=== PATIENT | male | born 1930 | race Caucasian/White ===

== ENCOUNTER 2017-07-25 11:09 | Inpatient (IN) | payer BC, MEDICARE ==
--- NOTE | 2017-07-25 12:38 | RAD ---
HISTORY: CP COMPARISON: 01/10/2013 FINDINGS: LUNGS: No active pulmonary disease. PLEURA: No significant pleural effusion identified, no pneumothorax apparent. CARDIOVASCULAR: Normal. OSSEOUS STRUCTURES: No significant abnormalities. VISUALIZED UPPER ABDOMEN: Normal. OTHER FINDINGS: None. IMPRESSION: No active disease.
--- NOTE | 2017-07-25 13:21 | ED PDOC ---
HPI: General Adult Time Seen by Provider: 07/25/17 12:02 Chief Complaint (Nursing): Flu-like Symptoms Chief Complaint (Provider): Flu-like Symptoms History Per: Patient History/Exam Limitations: no limitations Onset/Duration Of Symptoms: Persistent (x3 weeks) Current Symptoms Are (Timing): Still Present Additional Complaint(s): Micha Basurto is an 86 year old male that presents to the ED with a chief complaint of cough for three weeks, as well as generalized weakness, voice changing, and chest pain that she has been experiencing for the past five days. Patient reports that he has been taking over the counter medications without relief, and that he has been falling frequently because he feels weak. Patient denies any head injury, focal weakness, paresthesias, or headaches. Of Note: Patient's is in ER with similar symptoms. Past Medical History Reviewed: Historical Data, Nursing Documentation, Vital Signs Vital Signs: Last Vital Signs Temp 97.8 F 07/25/17 12:19 Pulse 86 07/25/17 12:19 Resp 20 07/25/17 12:19 BP 117/69 07/25/17 12:19 Pulse Ox 97 07/25/17 15:23 - Medical History PMH: Benign Prostatic Hyperplasia, HTN, Hypercholesterolemia - Surgical History Surgical History: Coronary Stent - Family History Family History: States: Unknown Family Hx - Home Medications Home Medications: Ambulatory Orders Medication Instructions Recorded Aspirin [Ecotrin] 81 mg PO HS 07/25/17 Cholecalciferol (Vitamin D3) 5,000 unit PO DAILY 07/25/17 [Vitamin D3] Dorzolamide 2%/Timolol 0.5% 1 drop EACHEYE Q12 07/25/17 [Cosopt 2%-0.5% Opht] Finasteride [Proscar] 5 mg PO HS 07/25/17 Glipizide [Glipizide ER] 2.5 mg PO QPM 07/25/17 Glipizide [Glipizide Xl] 10 mg PO DAILY 07/25/17 Metformin ER [Glucophage XR] 750 mg PO DAILY 07/25/17 Metoprolol Succinate [Toprol XL] 25 mg PO HS 07/25/17 [place]-3 Fatty Acids [[place]-3] 1 cap PO DAILY 07/25/17 Propylene Glycol/Peg 400 [Systane 1 drop EACHEYE Q6 PRN 07/25/17 Ultra 0.4-0.3% Eye Drp] Ramipril [Altace] 5 mg PO HS 07/25/17 Rosuvastatin Calcium [Crestor] 5 mg PO HS 07/25/17 Tamsulosin [Flomax] 0.4 mg PO HS 07/25/17 Travoprost [Travatan Z] 1 drop EACHEYE HS 07/25/17 Vitamin B Complex Vit C No.4 1 tab PO DAILY 07/25/17 [Super B Complex] - Allergies Allergies/Adverse Reactions: Allergies Allergy/AdvReac Type Severity Reaction Status Date / Time No Known Allergies Allergy Verified 07/25/17 12:27 Review of Systems ROS Statement: Except As Marked, All Systems Reviewed And Found Negative Constitutional: Positive for: Weakness (generalized) ENT: Positive for: Other ("voicie changing") Cardiovascular: Positive for: Chest Pain Respiratory: Positive for: Cough Physical Exam - Reviewed Nursing Documentation Reviewed: Yes Vital Signs Reviewed: Yes - Physical Exam Appears: Positive for: Non-toxic, No Acute Distress Head Exam: Positive for: ATRAUMATIC, NORMOCEPHALIC Skin: Positive for: Normal Color, Warm Eye Exam: Positive for: Normal appearance, EOMI, PERRL ENT: Positive for: Pharynx Is (clear), Other (Uvula midline. Dry mucous membranes. Voice is hoarse.). Negative for: Normal ENT Inspection, Pharyngeal Erythema, Tonsillar Exudate Neck: Positive for: Normal, Supple Cardiovascular/Chest: Positive for: Regular Rate, Rhythm. Negative for: Murmur Respiratory: Positive for: Normal Breath Sounds. Negative for: Wheezing Gastrointestinal/Abdominal: Positive for: Normal Exam, Soft. Negative for: Tenderness Back: Positive for: Normal Inspection. Negative for: L CVA Tenderness, R CVA Tenderness Extremity: Positive for: Normal ROM. Negative for: Deformity, Swelling Neurologic/Psych: Positive for: Alert, Oriented. Negative for: Motor/Sensory Deficits - Laboratory Results Result Diagrams: 07/25/17 14:15 07/25/17 12:45 - ECG O2 Sat by Pulse Oximetry: 97 (RA) Pulse Ox Interpretation: Normal - Physician Consult Information Time Consulting Physican Contacted: 15:03 Physician Contacted: Keyur Gómez Outcome Of Conversation: Recommends IgG antiplatelet Ab (direct and indirect), transfuse if evidence of bleeding. Medical Decision Making Medical Decision Making: Impression: Influenza vs. Generalized Weakness vs. Pneumonia vs. Bronchitis vs. Viral Syndrome Plan: * CT Head w/o contrast * EKG * CMP * CBC * PTT * PT * Troponin I * Urine Dip * Urinalysis * Blood Culture * Glucose, Blood, POC * Flu Swab * Rapid Strep * Reevaluation Accession No. : [id number] Patient Name / ID : AGUSTINA MOCK / [id number] Exam Date : 07/25/2017 12:22:37 ( Approved ) Study Comment : Sex / Age : M / 86Y Creator : Rashawn Roy MD Dictator : Rashawn Roy MD Regional [employer] : Fur Floor Worker : Rashawn Roy MD Approver2 : Report Date : 07/25/2017 12:36:44 My Comment : HISTORY: CP COMPARISON: 01/10/2013 FINDINGS: LUNGS: No active pulmonary disease. PLEURA: No significant pleural effusion identified, no pneumothorax apparent. CARDIOVASCULAR: Normal. OSSEOUS STRUCTURES: No significant abnormalities. VISUALIZED UPPER ABDOMEN: Normal. OTHER FINDINGS: None. IMPRESSION: No active disease. Accession No. : [id number] Patient Name / ID : AGUSTINA MOCK / [id number] Exam Date : 07/25/2017 14:50:50 ( Approved ) Study Comment : Sex / Age : M / 86Y Creator : Kyler Muñoz MD Dictator : Kyler Muñoz MD Regional [employer] : Fur Floor Worker : Kyler Muñoz MD Approver2 : Report Date : 07/25/2017 15:34:07 My Comment : PROCEDURE: CT HEAD WITHOUT CONTRAST. HISTORY: Vertigo COMPARISON: Unenhanced head CT 08/13/2009. Brain MRI without contrast 05/23/2011. TECHNIQUE: Axial computed tomography images were obtained through the head/brain without intravenous contrast. Radiation dose: Total exam DLP = 850.76 mGy-cm. This CT exam was performed using one or more of the following dose reduction techniques: Automated exposure control, adjustment of the mA and/or kV according to patient size, and/or use of iterative reconstruction technique. FINDINGS: HEMORRHAGE: No intracranial hemorrhage. BRAIN: Good corticomedullary differentiation is seen. Diffuse expansion of the ventriculosulcal and cisternal spaces is appreciated with white matter lucency compatible with diffuse cerebral atrophy and chronic microangiopathy. No suspicious extra-axial fluid collection is identified and the midline brain anatomy appears grossly nonfocal as imaged. There is no mass effect throughout. VENTRICLES: Unremarkable. No hydrocephalus. CALVARIUM: Unremarkable. PARANASAL SINUSES: Extensive right mastoid sinus disease appreciated, acute superimposed on chronic. MASTOID AIR CELLS: Unremarkable as visualized. No inflammatory changes. OTHER FINDINGS: None. IMPRESSION: Reiterated age related neuro degenerative change without definite acute CT findings intracranially. Follow-up CT or MRI are available as clinically warranted. Scribe Attestation: Documented by Mikala Daniel, acting as a scribe for Lo Kelly MD. Provider Scribe Attestation: All medical record entries made by the Scribe were at my direction and personally dictated by me. I have reviewed the chart and agree that the record accurately reflects my personal performance of the history, physical exam, medical decision making, and the department course for this patient. I have also personally directed, reviewed, and agree with the discharge instructions and disposition. Disposition - Clinical Impression Clinical Impression: Chest pain, Thrombocytopenia - Patient ED Disposition Is Patient to be Admitted: Yes - Disposition Disposition Time: 15:22 Condition: STABLE - Pt Status Changed To: Hospital Disposition Of: Inpatient - Admit Certification Admit to Inpatient:: After my assessment, the patient will require hospitalization for at least two midnights. This is because of the severity of symptoms shown, intensity of services needed, and/or the medical risk in this patient being treated as an outpatient. - POA Present On Arrival: None
[2017-07-25 13:38] LABS: BASO % 0.6 % (0.0-2.0); EOS % 0.1 % (0.0-4.0); HEMOGLOBIN 11.8 g/dL (12.0-18.0); LYMPH # 2.9 K/uL (1.0-4.3); LYMPH % 46.6 % (20.0-40.0); MEAN CELL VOLUME 94.8 fl (80.0-94.0); MEAN CORPUSCULAR HEMOGLOBIN 31.6 pg (27.0-31.0); MEAN CORPUSCULAR HGB CONC 33.3 g/dL (33.0-37.0); MEAN PLATELET VOLUME 9.2 fl (7.2-11.7); MONO # 0.4 K/uL (0.0-0.8); MONO % 6.7 % (0.0-10.0); NEUT # 2.8 K/uL (1.8-7.0); NRBC % 4.2 % (0.0-0.0); RBC 3.74 Mil/uL (4.40-5.90); RED CELL DISTRIBUTION WIDTH 16.4 % (11.5-14.5); WHITE BLOOD COUNT 6.2 K/uL (4.8-10.8)
[2017-07-25] MEDS ORDERED: Dextrose 50% SYRINGE Inj (50 ml) ONE (13:45)
[2017-07-25 13:50] LABS: ALBUMIN 3.6 g/dL (3.5-5.0); ALT/SGPT 81 U/L (21-72); AST/SGOT 60 U/L (17-59); BLOOD UREA NITROGEN 25 mg/dl (9-20); CALCIUM 9.2 mg/dL (8.4-10.2); GFR AFRICAN-AMERICAN > 60; GFR NON-AFRICAN AMERICAN > 60
[2017-07-25 14:29] LABS: BASO % 0.5 % (0.0-2.0); EOS % 0.1 % (0.0-4.0); HEMOGLOBIN 11.7 g/dL (12.0-18.0); LYMPH # 3.2 K/uL (1.0-4.3); LYMPH % 50.3 % (20.0-40.0); MEAN CELL VOLUME 95.3 fl (80.0-94.0); MEAN CORPUSCULAR HGB CONC 33.5 g/dL (33.0-37.0); MEAN PLATELET VOLUME 8.5 fl (7.2-11.7); MONO # 0.1 K/uL (0.0-0.8); NEUT # 3.1 K/uL (1.8-7.0); NEUT % 48.1 % (50.0-75.0); NRBC % 3.6 % (0.0-0.0); RBC 3.66 Mil/uL (4.40-5.90); RED CELL DISTRIBUTION WIDTH 16.3 % (11.5-14.5); WHITE BLOOD COUNT 6.4 K/uL (4.8-10.8)
[2017-07-25 14:32] LABS: URINE BILIRUBIN NEGATIVE (NEGATIVE); URINE BLOOD NEGATIVE (NEGATIVE); URINE CLARITY CLOUDY (Clear); URINE COLOR AMBER (YELLOW); URINE GLUCOSE (UA) >=500 mg/dL (Normal); URINE LEUKOCYTE ESTERASE NEG Leu/uL (Negative); URINE NITRATE NEGATIVE (NEGATIVE); URINE PROTEIN 30 mg/dL (NEGATIVE)
[2017-07-25 14:42] LABS: PLATELET COUNT 22 K/uL (130-400)
[2017-07-25 15:18] LABS: INR 1.3 (0.9-1.2); PARTIAL THROMBOPLASTIN TIME 28.3 Seconds (25.6-37.1); PROTHROMBIN TIME 14.8 Seconds (9.8-13.1)
--- NOTE | 2017-07-25 15:35 | CT ---
PROCEDURE: CT HEAD WITHOUT CONTRAST. HISTORY: Vertigo COMPARISON: Unenhanced head CT 08/13/2009. Brain MRI without contrast 05/23/2011. TECHNIQUE: Axial computed tomography images were obtained through the head/brain without intravenous contrast. Radiation dose: Total exam DLP = 850.76 mGy-cm. This CT exam was performed using one or more of the following dose reduction techniques: Automated exposure control, adjustment of the mA and/or kV according to patient size, and/or use of iterative reconstruction technique. FINDINGS: HEMORRHAGE: No intracranial hemorrhage. BRAIN: Good corticomedullary differentiation is seen. Diffuse expansion of the ventriculosulcal and cisternal spaces is appreciated with white matter lucency compatible with diffuse cerebral atrophy and chronic microangiopathy. No suspicious extra-axial fluid collection is identified and the midline brain anatomy appears grossly nonfocal as imaged. There is no mass effect throughout. VENTRICLES: Unremarkable. No hydrocephalus. CALVARIUM: Unremarkable. PARANASAL SINUSES: Extensive right mastoid sinus disease appreciated, acute superimposed on chronic. MASTOID AIR CELLS: Unremarkable as visualized. No inflammatory changes. OTHER FINDINGS: None. IMPRESSION: Reiterated age related neuro degenerative change without definite acute CT findings intracranially. Follow-up CT or MRI are available as clinically warranted.
[2017-07-25 18:08] LABS: LYMPHOCYTE 46 % (20-50); METAMYELOCYTE 2 % (0-0); MONOCYTE 1 % (0-10); MYELOCYTE 2 % (0-0); NEUTROPHIL 9 % (42-75); NUCLEATED RED BLOOD CELL 7 % (0-0); PROMYELOCYTE 4 % (0-0); REACTIVE LYMPHOCYTES 20 % (0-0); TOTAL CELLS COUNTED 100
[2017-07-25 18:09] LABS: ANISOCYTOSIS SLIGHT; PLATELET ESTIMATE DECREASED (NORMAL)
[2017-07-25 18:10] LABS: HYPOCHROMIC MODERATE; POIKILOCYTOSIS SLIGHT
[2017-07-25 18:11] LABS: POLYCHROMIC SLIGHT; TARGET CELLS SLIGHT
[2017-07-25 18:12] LABS: ACANTHOCYTES SLIGHT; BURR CELLS SLIGHT; SCHISTOCYTES SLIGHT; SPHEROCYTES SLIGHT
[2017-07-25 18:13] LABS: HYPERSEGMENTATION PRESENT; OVALOCYTES SLIGHT; SMUDGE CELLS PRESENT; STOMATOCYTES SLIGHT
[2017-07-25 18:15] LABS: BLASTS 16 % (0-0)
[2017-07-25] MEDS ORDERED: PROPYLENE GLYCOL EACHEYE PRN (20:36)
[2017-07-25] MEDS ORDERED: PEG EACHEYE PRN (20:36)
[2017-07-25] MEDS: Patient's Own Med (Dorzolamide 2%/Timolol 0.5% [Cosopt 2%-0.5% Opht] 1 DROP) EACHEYE SCH (23:00)
[2017-07-25] MEDS: TRAVOPROST 0.004% EACHEYE SCH (23:00)
[2017-07-25] MEDS: ROSUVASTATIN CALCIUM 5 MG PO SCH (23:00)
[2017-07-26] MEDS: Metoprolol Succinate 25 mg XL Tab PO SCH ×2 (03:11→21:22)
[2017-07-26 05:52] LABS: HEMOGLOBIN 10.3 g/dL (12.0-18.0); MEAN CELL VOLUME 94.6 fl (80.0-94.0); MEAN CORPUSCULAR HEMOGLOBIN 31.6 pg (27.0-31.0); MEAN CORPUSCULAR HGB CONC 33.4 g/dL (33.0-37.0); RBC 3.25 Mil/uL (4.40-5.90); RED CELL DISTRIBUTION WIDTH 16.1 % (11.5-14.5); WHITE BLOOD COUNT 7.2 K/uL (4.8-10.8)
[2017-07-26 06:40] LABS: ALBUMIN 3.3 g/dL (3.5-5.0); ALT/SGPT 80 U/L (21-72); AST/SGOT 51 U/L (17-59); BLOOD UREA NITROGEN 27 mg/dl (9-20); CALCIUM 8.5 mg/dL (8.4-10.2); GFR AFRICAN-AMERICAN > 60; GFR NON-AFRICAN AMERICAN > 60; HDL CHOLESTEROL 27 MG/DL (30-70); LDL CHOLESTEROL 36 mg/dL (0-129)
--- NOTE | 2017-07-26 08:53 | CP.PCM.HP ---
History of Present Illness - History of Present Illness History of Present Illness: Patient evaluated with Dr Bunn during rounds 86 y/o M with PMHx of DM, BPH was brought byfamily to ED yesterday with c/o progressive weakness for the past week, confusion and s/p recent fall with new onset big ecchymosis at the side of the impact from the fall. Patient has been compliant with all his meds. Family has been noticing confused at times, weak and with unsteady gait for the past 1-2 weeks, also hoarseness and sore throat. Today patient is in not acute distress in bed, seem slightly aphasic, c/o hoarseness and persistent generalized weakness. Denies hip pain, headache, CP, SOB, palpitations, vision changes or abd pain. Present on Admission - Present on Admission Any Indicators Present on Admission: No Review of Systems - Review of Systems All systems: reviewed and no additional remarkable complaints except - Constitutional Constitutional: Weakness - EENT Nose/Mouth/Throat: Hoarsness, Sore Throat - Integumentary Integumentary: Bleeding Lesions Past Patient History - Infectious Disease Hx of Infectious Diseases: None - Past Medical History & Family History Past Medical History?: Yes - Past Social History Smoking Status: Never Smoked - CARDIAC Hx Cardiac Disorders: Yes Hx Hypercholesterolemia: Yes Hx Hypertension: Yes Other/Comment: cardiac stents - ENDOCRINE/METABOLIC Hx Endocrine Disorders: Yes Hx Diabetes Mellitus Type 2: Yes - MUSCULOSKELETAL/RHEUMATOLOGICAL Hx Falls: No - GENITOURINARY/GYNECOLOGICAL Hx Genitourinary Disorders: Yes Other/Comment: BPH - PSYCHIATRIC Hx Substance Use: No - SURGICAL HISTORY Hx Coronary Stent: Yes - ANESTHESIA Hx Anesthesia: Yes Hx Anesthesia Reactions: No Meds Allergies/Adverse Reactions: Allergies Allergy/AdvReac Type Severity Reaction Status Date / Time No Known Allergies Allergy Verified 07/25/17 12:27 Physical Exam - Constitutional Appears: Non-toxic, Chronically Ill - Eye Exam Eye Exam: EOMI, PERRL - ENT Exam ENT Exam: Mucous Membranes Moist - Respiratory Exam Respiratory Exam: Clear to Auscultation Bilateral, NORMAL BREATHING PATTERN. absent: Rales - Cardiovascular Exam Cardiovascular Exam: REGULAR RHYTHM, +S1, +S2. absent: Gallop - GI/Abdominal Exam GI & Abdominal Exam: Normal Bowel Sounds, Soft. absent: Tenderness - Extremities Exam Extremities exam: Negative for: calf tenderness Additional comments: Spasticity B/L. - Neurological Exam Neurological exam: Alert Additional comments: mask like expression. LE spasticity B/L - Skin Skin Exam: Petechiae (LE. Ecchymosis R/hip), Warm Results - Vital Signs Recent Vital Signs: Last Vital Signs Temp 99.0 F 07/26/17 05:39 Pulse 99 H 07/26/17 05:39 Resp 18 07/26/17 05:39 BP 123/66 07/26/17 05:39 Pulse Ox 100 07/26/17 05:39 - Labs Result Diagrams: 07/26/17 04:30 07/26/17 04:30 Labs: Laboratory Results - last 24 hr 07/25/17 07/25/17 07/25/17 12:45 12:45 12:45 WBC 6.2 RBC 3.74 L Hgb 11.8 L Hct 35.4 MCV 94.8 H MCH 31.6 H MCHC 33.3 RDW 16.4 H Plt Count 23 L* MPV 9.2 Neut % (Auto) 46.0 L Lymph % (Auto) 46.6 H [place] % (Auto) 6.7 Eos % (Auto) 0.1 Baso % (Auto) 0.6 Neut # (Auto) 2.8 Lymph # (Auto) 2.9 [place] # (Auto) 0.4 Eos # (Auto) 0.0 Baso # (Auto) 0.0 Neutrophils % (Manual) Lymphocytes % (Manual) Reactive Lymphs % Monocytes % (Manual) Metamyelocytes % Myelocytes % Promyelocytes % Blast Cells % Nucleated RBC % Hypersegmented Polys Smudge Cells Platelet Estimate Polychromasia Hypochromasia (manual) Poikilocytosis (manual Anisocytosis (manual) Macrocytosis (manual) Spherocytes Target Cells Ovalocytes Stomatocytes [place] Cells Acanthocytes (Spur) Schistocytes PT 14.8 H INR 1.3 H APTT 28.3 Sodium 143 Potassium 4.2 Chloride 109 H Carbon Dioxide 22 Anion Gap 16 BUN 25 H Creatinine 0.7 L Est GFR ( Amer) > 60 Est GFR (Non-Af Amer) > 60 POC Glucose (mg/dL) Random Glucose 304 H Calcium 9.2 Total Bilirubin 0.9 AST 60 H ALT 81 H Alkaline Phosphatase 1164 H Troponin I 0.0160 Total Protein 7.1 Albumin 3.6 Globulin 3.5 Albumin/Globulin Ratio 1.0 Triglycerides Cholesterol LDL Cholesterol Direct HDL Cholesterol Vitamin B12 Total T3 TSH 3rd Generation Urine Color Urine Clarity Urine pH Ur Specific [place] Urine Protein Urine Glucose (UA) Urine Ketones Urine Blood Urine Nitrate Urine Bilirubin Urine Urobilinogen Ur Leukocyte Esterase Urine RBC (Auto) Urine Microscopic WBC Influenza Typ A,B (EIA) Grp A Beta Strep Ag 07/25/17 07/25/17 07/25/17 12:45 12:45 13:55 WBC RBC Hgb Hct MCV MCH MCHC RDW Plt Count MPV Neut % (Auto) Lymph % (Auto) [place] % (Auto) Eos % (Auto) Baso % (Auto) Neut # (Auto) Lymph # (Auto) [place] # (Auto) Eos # (Auto) Baso # (Auto) Neutrophils % (Manual) Lymphocytes % (Manual) Reactive Lymphs % Monocytes % (Manual) Metamyelocytes % Myelocytes % Promyelocytes % Blast Cells % Nucleated RBC % Hypersegmented Polys Smudge Cells Platelet Estimate Polychromasia Hypochromasia (manual) Poikilocytosis (manual Anisocytosis (manual) Macrocytosis (manual) Spherocytes Target Cells Ovalocytes Stomatocytes [place] Cells Acanthocytes (Spur) Schistocytes PT INR APTT Sodium Potassium Chloride Carbon Dioxide Anion Gap BUN Creatinine Est GFR ( Amer) Est GFR (Non-Af Amer) POC Glucose (mg/dL) 263 H Random Glucose Calcium Total Bilirubin AST ALT Alkaline Phosphatase Troponin I Total Protein Albumin Globulin Albumin/Globulin Ratio Triglycerides Cholesterol LDL Cholesterol Direct HDL Cholesterol Vitamin B12 Total T3 TSH 3rd Generation Urine Color Urine Clarity Urine pH Ur Specific [place] Urine Protein Urine Glucose (UA) Urine Ketones Urine Blood Urine Nitrate Urine Bilirubin Urine Urobilinogen Ur Leukocyte Esterase Urine RBC (Auto) Urine Microscopic WBC Influenza Typ A,B (EIA) Negative for flu a/b Grp A Beta Strep Ag Negative 07/25/17 07/25/17 07/25/17 14:15 14:15 21:00 WBC 6.4 RBC 3.66 L Hgb 11.7 L Hct 34.9 L MCV 95.3 H MCH 32.0 H MCHC 33.5 RDW 16.3 H Plt Count 22 L* MPV 8.5 Neut % (Auto) 48.1 L Lymph % (Auto) 50.3 H [place] % (Auto) 1.0 Eos % (Auto) 0.1 Baso % (Auto) 0.5 Neut # (Auto) 3.1 Lymph # (Auto) 3.2 [place] # (Auto) 0.1 Eos # (Auto) 0.0 Baso # (Auto) 0.0 Neutrophils % (Manual) 9 L Lymphocytes % (Manual) 46 Reactive Lymphs % 20 H Monocytes % (Manual) 1 Metamyelocytes % 2 H Myelocytes % 2 H Promyelocytes % 4 H Blast Cells % 16 H Nucleated RBC % 7 H Hypersegmented Polys Present Smudge Cells Present Platelet Estimate Decreased L Polychromasia Slight Hypochromasia (manual) Moderate Poikilocytosis (manual Slight Anisocytosis (manual) Slight Macrocytosis (manual) Slight Spherocytes Slight Target Cells Slight Ovalocytes Slight Stomatocytes Slight [place] Cells Slight Acanthocytes (Spur) Slight Schistocytes Slight PT INR APTT Sodium Potassium Chloride Carbon Dioxide Anion Gap BUN Creatinine Est GFR ( Amer) Est GFR (Non-Af Amer) POC Glucose (mg/dL) Random Glucose Calcium Total Bilirubin AST ALT Alkaline Phosphatase Troponin I 0.0220 Total Protein Albumin Globulin Albumin/Globulin Ratio Triglycerides Cholesterol LDL Cholesterol Direct HDL Cholesterol Vitamin B12 Total T3 TSH 3rd Generation Urine Color [place] Urine Clarity Cloudy Urine pH 5.0 Ur Specific [place] 1.029 Urine Protein 30 Urine Glucose (UA) >=500 Urine Ketones Trace Urine Blood Negative Urine Nitrate Negative Urine Bilirubin Negative Urine Urobilinogen 2.0 Ur Leukocyte Esterase Neg Urine RBC (Auto) 4 H Urine Microscopic WBC 5 Influenza Typ A,B (EIA) Grp A Beta Strep Ag 07/26/17 07/26/17 04:30 04:30 WBC 7.2 RBC 3.25 L Hgb 10.3 L Hct 30.7 L MCV 94.6 H MCH 31.6 H MCHC 33.4 RDW 16.1 H Plt Count 23 L* MPV Neut % (Auto) Lymph % (Auto) [place] % (Auto) Eos % (Auto) Baso % (Auto) Neut # (Auto) Lymph # (Auto) [place] # (Auto) Eos # (Auto) Baso # (Auto) Neutrophils % (Manual) Lymphocytes % (Manual) Reactive Lymphs % Monocytes % (Manual) Metamyelocytes % Myelocytes % Promyelocytes % Blast Cells % Nucleated RBC % Hypersegmented Polys Smudge Cells Platelet Estimate Polychromasia Hypochromasia (manual) Poikilocytosis (manual Anisocytosis (manual) Macrocytosis (manual) Spherocytes Target Cells Ovalocytes Stomatocytes [place] Cells Acanthocytes (Spur) Schistocytes PT INR APTT Sodium 144 Potassium 3.8 Chloride 108 H Carbon Dioxide 24 Anion Gap 16 BUN 27 H Creatinine 0.6 L Est GFR ( Amer) > 60 Est GFR (Non-Af Amer) > 60 POC Glucose (mg/dL) Random Glucose 229 H Calcium 8.5 Total Bilirubin 0.8 AST 51 ALT 80 H Alkaline Phosphatase 1143 H Troponin I 0.0260 Total Protein 6.6 Albumin 3.3 L Globulin 3.3 Albumin/Globulin Ratio 1.0 Triglycerides 72 Cholesterol 83 LDL Cholesterol Direct 36 HDL Cholesterol 27 L Vitamin B12 > 1000 H Total T3 1.20 L TSH 3rd Generation 1.00 Urine Color Urine Clarity Urine pH Ur Specific [place] Urine Protein Urine Glucose (UA) Urine Ketones Urine Blood Urine Nitrate Urine Bilirubin Urine Urobilinogen Ur Leukocyte Esterase Urine RBC (Auto) Urine Microscopic WBC Influenza Typ A,B (EIA) Grp A Beta Strep Ag Assessment & Plan - Assessment and Plan (Free Text) Assessment: thrombocytopenia/anemia Plt 30s Poss acute Hemo-onc consulted: Poss ALL Elevated AP with no so elevated LFTs Big Ecchymosis R/Hip related to recent fall F/U Hem-onc recs Ataxia New onset Also LE spasticity recent fall Neuro consult DM Stable c/w home meds Accuchecks
[2017-07-26] MEDS ORDERED: GlipiZIDE 10 mg SR Tab PO SCH (09:00)
[2017-07-26] MEDS ORDERED: VITAMIN B COMPLEX VIT C NO 4 PO SCH (09:00)
[2017-07-26] MEDS ORDERED: OMEGA KRILL OIL PO SCH (09:00)
[2017-07-26] MEDS ORDERED: Enoxaparin 40 mg Syringe SC SCH (09:00)
[2017-07-26] MEDS ORDERED: Patient's Own Med (Metformin Er [Glucophage Xr] 750 mg) PO SCH (09:00)
[2017-07-26] MEDS ORDERED: Cholecalciferol 1,000 INTLU TAB PO SCH (09:00)
--- NOTE | 2017-07-26 10:15 | CP.PCM.CON ---
History of Present Illness - History of Present Illness History of Present Illness: This is a 86 yrs old male who came to the ER because of cough , for a week weakness, and then a sore throat and he lost his voice. He became very weak and had a fal with a large ecchymosis to the gluteal area. He came to the ER where a blood test done showed a WBC of 7.2, hgb 10.3gms, and platelets were 22k. His manual differential showed neutrophils 9.1%, lymphocytes 46%, reactive lymphocytes 20%, monocytes 1%, metsmyelocytes 2%, promyelocytes 4%, blasts 16%, NRBC7%, smudge cells present. Chemistry showed AST 51, ALT 80, Alk phos 1143. He has no bleeding from any site. Only ecchymosis is from the fall and the blood drawing. Pt is a little confused according to the , and especially since he lost his voice. PMH; Hypercholesterolemia, HTN, DM type2,cardiac stent placed some yrs ago. He has never smoked drinks socially Past Patient History - Infectious Disease Hx of Infectious Diseases: None - Past Medical History & Family History Past Medical History?: Yes - Past Social History Smoking Status: Never Smoked - CARDIAC Hx Cardiac Disorders: Yes Hx Hypercholesterolemia: Yes Hx Hypertension: Yes Other/Comment: cardiac stents - ENDOCRINE/METABOLIC Hx Endocrine Disorders: Yes Hx Diabetes Mellitus Type 2: Yes - MUSCULOSKELETAL/RHEUMATOLOGICAL Hx Falls: No - GENITOURINARY/GYNECOLOGICAL Hx Genitourinary Disorders: Yes Other/Comment: BPH - PSYCHIATRIC Hx Substance Use: No - SURGICAL HISTORY Hx Coronary Stent: Yes - ANESTHESIA Hx Anesthesia: Yes Hx Anesthesia Reactions: No Meds Allergies/Adverse Reactions: Allergies Allergy/AdvReac Type Severity Reaction Status Date / Time No Known Allergies Allergy Verified 07/25/17 12:27 - Medications Medications: Current Medications Aspirin (Ecotrin) 81 mg PO HS [facility] Last Admin: 07/25/17 23:00 Dose: 81 mg Cholecalciferol (Vitamin D) 5,000 intlu PO DAILY [facility] Enoxaparin Sodium (Lovenox) 40 mg SC DAILY [facility] PRN Reason: Protocol Finasteride (Proscar) 5 mg PO HS [facility] Last Admin: 07/25/17 23:00 Dose: 5 mg Glipizide (Glucotrol Xl) 2.5 mg PO QPM [facility] Glipizide (Glucotrol Xl) 10 mg PO DAILY [facility] Home Med (Dorzolamide 2%/Timolol 0.5% [Cosopt 2%-0.5% Opht]) 1 drop EACHEYE Q12 [facility] Last Admin: 07/25/17 23:00 Dose: 1 drop Home Med (Metformin Er [Glucophage Xr]) 750 mg PO DAILY [facility] Home Med (Patient's Own Medication) 1 unit PO DAILY [facility] Home Med (Propylene Glycol/Peg 400 [Systane Ultra 0.4-0.3% Eye Drp]) 1 drop EACHEYE Q6 PRN PRN Reason: Dry eyes Home Med (Travoprost [Travatan Z]) 1 drop EACHEYE [facility] Last Admin: 07/25/17 23:00 Dose: 1 drop Home Med (Vitamin B Complex Vit C No.4 [Super B Complex]) 1 tab PO DAILY [facility] Home Med (Patient's Own Medication) 1 unit PO [facility] Last Admin: 07/25/17 23:00 Dose: 1 unit Metoprolol Succinate (Toprol Xl) 25 mg PO [facility] Last Admin: 07/26/17 03:11 Dose: 25 mg Ramipril (Altace) 5 mg PO [facility] Last Admin: 07/25/17 23:00 Dose: 5 mg Tamsulosin HCl (Flomax) 0.4 mg PO [facility] Last Admin: 07/25/17 23:00 Dose: 0.4 mg Physical Exam - Additional Findings Additional findings: Physical exam; Alert , appears a little confused, in no acute distress Neck; supple, no adenopathy Chest; Clear, no rales or rhonchi Heart: RSR, no murmur Abd; Soft, no palpable hepato /splenomegaly Ecchymosis seen on the right buttock Results - Vital Signs Recent Vital Signs: Last Vital Signs Temp 98.5 F 07/26/17 08:00 Pulse 85 07/26/17 08:00 Resp 18 07/26/17 08:00 BP 106/68 07/26/17 08:00 Pulse Ox 99 07/26/17 08:00 - Labs Result Diagrams: 07/26/17 04:30 07/26/17 04:30 Labs: Laboratory Results - last 24 hr 07/25/17 07/25/17 07/25/17 12:45 12:45 12:45 WBC 6.2 RBC 3.74 L Hgb 11.8 L Hct 35.4 MCV 94.8 H MCH 31.6 H MCHC 33.3 RDW 16.4 H Plt Count 23 L* MPV 9.2 Neut % (Auto) 46.0 L Lymph % (Auto) 46.6 H [place] % (Auto) 6.7 Eos % (Auto) 0.1 Baso % (Auto) 0.6 Neut # (Auto) 2.8 Lymph # (Auto) 2.9 [place] # (Auto) 0.4 Eos # (Auto) 0.0 Baso # (Auto) 0.0 Neutrophils % (Manual) Lymphocytes % (Manual) Reactive Lymphs % Monocytes % (Manual) Metamyelocytes % Myelocytes % Promyelocytes % Blast Cells % Nucleated RBC % Hypersegmented Polys Smudge Cells Platelet Estimate Polychromasia Hypochromasia (manual) Poikilocytosis (manual Anisocytosis (manual) Macrocytosis (manual) Spherocytes Target Cells Ovalocytes Stomatocytes [place] Cells Acanthocytes (Spur) Schistocytes PT 14.8 H INR 1.3 H APTT 28.3 Sodium 143 Potassium 4.2 Chloride 109 H Carbon Dioxide 22 Anion Gap 16 BUN 25 H Creatinine 0.7 L Est GFR ( Amer) > 60 Est GFR (Non-Af Amer) > 60 POC Glucose (mg/dL) Random Glucose 304 H Calcium 9.2 Total Bilirubin 0.9 AST 60 H ALT 81 H Alkaline Phosphatase 1164 H Troponin I 0.0160 Total Protein 7.1 Albumin 3.6 Globulin 3.5 Albumin/Globulin Ratio 1.0 Triglycerides Cholesterol LDL Cholesterol Direct HDL Cholesterol Vitamin B12 Total T3 TSH 3rd Generation Urine Color Urine Clarity Urine pH Ur Specific [place] Urine Protein Urine Glucose (UA) Urine Ketones Urine Blood Urine Nitrate Urine Bilirubin Urine Urobilinogen Ur Leukocyte Esterase Urine RBC (Auto) Urine Microscopic WBC Influenza Typ A,B (EIA) Grp A Beta Strep Ag 07/25/17 07/25/17 07/25/17 12:45 12:45 13:55 WBC RBC Hgb Hct MCV MCH MCHC RDW Plt Count MPV Neut % (Auto) Lymph % (Auto) [place] % (Auto) Eos % (Auto) Baso % (Auto) Neut # (Auto) Lymph # (Auto) [place] # (Auto) Eos # (Auto) Baso # (Auto) Neutrophils % (Manual) Lymphocytes % (Manual) Reactive Lymphs % Monocytes % (Manual) Metamyelocytes % Myelocytes % Promyelocytes % Blast Cells % Nucleated RBC % Hypersegmented Polys Smudge Cells Platelet Estimate Polychromasia Hypochromasia (manual) Poikilocytosis (manual Anisocytosis (manual) Macrocytosis (manual) Spherocytes Target Cells Ovalocytes Stomatocytes [place] Cells Acanthocytes (Spur) Schistocytes PT INR APTT Sodium Potassium Chloride Carbon Dioxide Anion Gap BUN Creatinine Est GFR ( Amer) Est GFR (Non-Af Amer) POC Glucose (mg/dL) 263 H Random Glucose Calcium Total Bilirubin AST ALT Alkaline Phosphatase Troponin I Total Protein Albumin Globulin Albumin/Globulin Ratio Triglycerides Cholesterol LDL Cholesterol Direct HDL Cholesterol Vitamin B12 Total T3 TSH 3rd Generation Urine Color Urine Clarity Urine pH Ur Specific [place] Urine Protein Urine Glucose (UA) Urine Ketones Urine Blood Urine Nitrate Urine Bilirubin Urine Urobilinogen Ur Leukocyte Esterase Urine RBC (Auto) Urine Microscopic WBC Influenza Typ A,B (EIA) Negative for flu a/b Grp A Beta Strep Ag Negative 07/25/17 07/25/17 07/25/17 14:15 14:15 21:00 WBC 6.4 RBC 3.66 L Hgb 11.7 L Hct 34.9 L MCV 95.3 H MCH 32.0 H MCHC 33.5 RDW 16.3 H Plt Count 22 L* MPV 8.5 Neut % (Auto) 48.1 L Lymph % (Auto) 50.3 H [place] % (Auto) 1.0 Eos % (Auto) 0.1 Baso % (Auto) 0.5 Neut # (Auto) 3.1 Lymph # (Auto) 3.2 [place] # (Auto) 0.1 Eos # (Auto) 0.0 Baso # (Auto) 0.0 Neutrophils % (Manual) 9 L Lymphocytes % (Manual) 46 Reactive Lymphs % 20 H Monocytes % (Manual) 1 Metamyelocytes % 2 H Myelocytes % 2 H Promyelocytes % 4 H Blast Cells % 16 H Nucleated RBC % 7 H Hypersegmented Polys Present Smudge Cells Present Platelet Estimate Decreased L Polychromasia Slight Hypochromasia (manual) Moderate Poikilocytosis (manual Slight Anisocytosis (manual) Slight Macrocytosis (manual) Slight Spherocytes Slight Target Cells Slight Ovalocytes Slight Stomatocytes Slight [place] Cells Slight Acanthocytes (Spur) Slight Schistocytes Slight PT INR APTT Sodium Potassium Chloride Carbon Dioxide Anion Gap BUN Creatinine Est GFR ( Amer) Est GFR (Non-Af Amer) POC Glucose (mg/dL) Random Glucose Calcium Total Bilirubin AST ALT Alkaline Phosphatase Troponin I 0.0220 Total Protein Albumin Globulin Albumin/Globulin Ratio Triglycerides Cholesterol LDL Cholesterol Direct HDL Cholesterol Vitamin B12 Total T3 TSH 3rd Generation Urine Color Taisha Urine Clarity Cloudy Urine pH 5.0 Ur Specific [place] 1.029 Urine Protein 30 Urine Glucose (UA) >=500 Urine Ketones Trace Urine Blood Negative Urine Nitrate Negative Urine Bilirubin Negative Urine Urobilinogen 2.0 Ur Leukocyte Esterase Neg Urine RBC (Auto) 4 H Urine Microscopic WBC 5 Influenza Typ A,B (EIA) Grp A Beta Strep Ag 07/26/17 07/26/17 04:30 04:30 WBC 7.2 RBC 3.25 L Hgb 10.3 L Hct 30.7 L MCV 94.6 H MCH 31.6 H MCHC 33.4 RDW 16.1 H Plt Count 23 L* MPV Neut % (Auto) Lymph % (Auto) [place] % (Auto) Eos % (Auto) Baso % (Auto) Neut # (Auto) Lymph # (Auto) [place] # (Auto) Eos # (Auto) Baso # (Auto) Neutrophils % (Manual) Lymphocytes % (Manual) Reactive Lymphs % Monocytes % (Manual) Metamyelocytes % Myelocytes % Promyelocytes % Blast Cells % Nucleated RBC % Hypersegmented Polys Smudge Cells Platelet Estimate Polychromasia Hypochromasia (manual) Poikilocytosis (manual Anisocytosis (manual) Macrocytosis (manual) Spherocytes Target Cells Ovalocytes Stomatocytes [place] Cells Acanthocytes (Spur) Schistocytes PT INR APTT Sodium 144 Potassium 3.8 Chloride 108 H Carbon Dioxide 24 Anion Gap 16 BUN 27 H Creatinine 0.6 L Est GFR ( Amer) > 60 Est GFR (Non-Af Amer) > 60 POC Glucose (mg/dL) Random Glucose 229 H Calcium 8.5 Total Bilirubin 0.8 AST 51 ALT 80 H Alkaline Phosphatase 1143 H Troponin I 0.0260 Total Protein 6.6 Albumin 3.3 L Globulin 3.3 Albumin/Globulin Ratio 1.0 Triglycerides 72 Cholesterol 83 LDL Cholesterol Direct 36 HDL Cholesterol 27 L Vitamin B12 > 1000 H Total T3 1.20 L TSH 3rd Generation 1.00 Urine Color Urine Clarity Urine pH Ur Specific [place] Urine Protein Urine Glucose (UA) Urine Ketones Urine Blood Urine Nitrate Urine Bilirubin Urine Urobilinogen Ur Leukocyte Esterase Urine RBC (Auto) Urine Microscopic WBC Influenza Typ A,B (EIA) Grp A Beta Strep Ag Assessment & Plan - Assessment and Plan (Free Text) Assessment: Impression; 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 ctr. - Date & Time Date: 07/26/17 Time: 10:56
--- NOTE | 2017-07-26 12:59 | CP.PCM.PN ---
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 he has accepted the patient who will be transferred to [facility] as inpatient as soon as the bed is available. either today or tomorrow. Objective - Vital Signs/Intake and Output Vital Signs (last 24 hours): Temp Pulse Resp BP Pulse Ox 98.2 F 95 H 20 143/82 99 07/26/17 12:00 07/26/17 12:00 07/26/17 12:00 07/26/17 12:00 07/26/17 12:00 - Medications Medications: Current Medications Aspirin (Ecotrin) 81 mg PO [facility] Last Admin: 07/25/17 23:00 Dose: 81 mg Cholecalciferol (Vitamin D) 5,000 intlu PO DAILY [facility] Last Admin: 07/26/17 10:41 Dose: 5,000 intlu Finasteride (Proscar) 5 mg PO [facility] Last Admin: 07/25/17 23:00 Dose: 5 mg Glipizide (Glucotrol Xl) 2.5 mg PO QPM [facility] Glipizide (Glucotrol Xl) 10 mg PO DAILY [facility] Last Admin: 07/26/17 10:38 Dose: 10 mg Home Med (Dorzolamide 2%/Timolol 0.5% [Cosopt 2%-0.5% Opht]) 1 drop EACHEYE Q12 [facility] Last Admin: 07/25/17 23:00 Dose: 1 drop Home Med (Metformin Er [Glucophage Xr]) 750 mg PO DAILY [facility] Last Admin: 07/26/17 10:39 Dose: 750 mg Home Med (Patient's Own Medication) 1 unit PO DAILY [facility] Last Admin: 07/26/17 10:40 Dose: 1 unit Home Med (Propylene Glycol/Peg 400 [Systane Ultra 0.4-0.3% Eye Drp]) 1 drop EACHEYE Q6 PRN PRN Reason: Dry eyes Home Med (Travoprost [Travatan Z]) 1 drop EACHEYE [facility] Last Admin: 07/25/17 23:00 Dose: 1 drop Home Med (Vitamin B Complex Vit C No.4 [Super B Complex]) 1 tab PO DAILY [facility] Last Admin: 07/26/17 10:41 Dose: 1 tab Home Med (Patient's Own Medication) 1 unit PO [facility] Last Admin: 07/25/17 23:00 Dose: 1 unit Metoprolol Succinate (Toprol Xl) 25 mg PO [facility] Last Admin: 07/26/17 03:11 Dose: 25 mg Ramipril (Altace) 5 mg PO [facility] Last Admin: 07/25/17 23:00 Dose: 5 mg Tamsulosin HCl (Flomax) 0.4 mg PO [facility] Last Admin: 07/25/17 23:00 Dose: 0.4 mg - Labs Labs: 07/26/17 04:30 07/26/17 04:30 PT 14.8 Seconds (9.8-13.1) H 07/25/17 12:45 INR 1.3 (0.9-1.2) H 07/25/17 12:45 APTT 28.3 Seconds (25.6-37.1) 07/25/17 12:45
--- NOTE | 2017-07-26 13:01 | CON ---
DATE: HISTORY OF PRESENT ILLNESS: Mr. Basurto is an 86-year-old male who was admitted via the Emergency Room and referred for pulmonary consultation by Dr. Bunn. He is well known to me from being the patient in my office for multiple years, but recently had changes in his insurance and has been unable to come. According to the , he felt sick for the past several weeks and became worse over the past 24 hours and was brought to the Emergency Room where workup is ongoing. He has had generalized weakness, change in his voice and caliber for the past several days and he has also had chest discomfort for the past 5 days. His speech is poor and his memory is also poor and he has become more incoherent. PAST MEDICAL HISTORY: Benign prostatic hyperplasia, hypertension, hyperlipidemia, and diabetes mellitus. FAMILY HISTORY: Noncontributory. SOCIAL HISTORY: He does not smoke or drink, and lives at home with his . REVIEW OF SYSTEMS: Essentially remarkable for new onset of unsteadiness of gait. PHYSICAL EXAMINATION: VITAL SIGNS: Blood pressure 117/69 with the pulse of 86, respiratory rate of 20. He is afebrile. O2 sat is 97% on room air. SKIN: Shows fair turgor. HEENT: Pupils are equal and reactive to light and accommodation. Mouth shows fair hygiene. JVP flat. LUNGS: Shows fair aeration with some basilar rales. HEART: S1 and S2. ABDOMEN: Soft and nontender. No organomegaly. EXTREMITIES: Shows no edema or cyanosis. CENTRAL NERVOUS SYSTEM: The patient appears somewhat confused. No gross deficit except for that. LABORATORY DATA: WBC of 6.4, hemoglobin of 11.7, and platelet count of 22,000. Sodium 143, potassium 4.2, BUN 25, creatinine 0.7, and serum glucose 304. CT scan of the head remarkable for age related changes. Chest x-ray, no active disease. EKG is remarkable for sinus rhythm with premature atrial complexes and left axis deviation. IMPRESSION: This is an 86-year-old male with multiple medical problems who has some form of change in mental status, unsteadiness of gait, and thrombocytopenia with anemia. One has to rule out some form of neurologic pathology. One also has rule out some form of hematopoietic or hematologic pathology review due to severe thrombocytopenia including leukemia, history of coronary artery disease in the past, history of diabetes mellitus as poorly controlled, and history of hypertension. PLAN: Plan is to continue therapy as ordered. I agree with hematology/oncology evaluation. We will continue to follow with you. Further therapy will depend on findings. Kevan Louis MD
[2017-07-26] MEDS: Patient's Own Med (Dorzolamide 2%/Timolol 0.5% [Cosopt 2%-0.5% Opht] 1 DROP) EACHEYE SCH ×2 (16:53→22:00)
[2017-07-26] MEDS ORDERED: GlipiZIDE 2.5 mg SR Tab PO SCH (18:00)
[2017-07-26] MEDS: ROSUVASTATIN CALCIUM 5 MG PO SCH (21:25)
[2017-07-26] MEDS ORDERED: Insulin Lispro (humaLOG) 100 Units/ml Inj SC SCH (22:00)
[2017-07-26] MEDS: TRAVOPROST 0.004% EACHEYE SCH (22:00)
[2017-07-27 00:47] VITALS: RESP 18; O2SAT 98
--- NOTE | 2017-07-27 01:07 | CON ---
CARDIOLOGY CONSULTATION DATE: REASON FOR CONSULTATION: History of EKG. HISTORY OF PRESENT ILLNESS: The patient is an 86-year-old male who was brought in to the Emergency Room because of cough for the past 3 weeks as well as generalized weakness and voice changing as well as chest pain. At this time, the patient himself does not provide me with any reliable answers, he is confused and I relied on the history from the Emergency Room evaluation. SOCIAL HISTORY: The patient is , lives with his . MEDICATIONS: Altace 5 mg at bedtime, aspirin 81 mg once a day, Flomax 0.4 mg once a day, Glucotrol XL 10 mg daily, Proscar 5 mg once a day, Lopressor 25 mg once a day and vitamin D 5,000 units daily. REVIEW OF SYSTEMS: No reported hypotension. No reported ventricular arrhythmia, low-grade fever was reported. PHYSICAL EXAMINATION GENERAL: The patient is an elderly male who is confused, does not appear to be in any respiratory distress. VITAL SIGNS: Blood pressure 143/82, heart rate 95, temperature 98.2 and respirations 20. HEENT: Pale conjunctivae. CHEST: Diminished breath sounds bilaterally. HEART: S1 and S2 regular and distant. ABDOMEN: Soft. EXTREMITIES: No edema. Bilateral ecchymosis noted on the both forearms. LABORATORY DATA: Hemoglobin and hematocrit 10.3 and 30.7, white count 7.2 and platelet count 23,000. Urinalysis revealed 4 rbcs per high-power field. SMA-7; sodium 144, potassium 3.8, chloride 108, CO2 of 24, glucose 129, BUN 27 and creatinine 0.6. INR is 1.3, PTT 28.3 and PT 14.8. Influenza type A and B serology is negative. EKG revealed sinus arrhythmia, premature atrial complexes, left-axis deviation. Head CT scan without contrast, age-related neurogenic changes acute CT findings, intracranially. I did review Dr. Gómez's the Hematology insolvency consultant note. Dr. Gómez spoke to Dr. Hairston from the Leukemia department, [place]. The patient has acute lymphoid leukemia, which cannot be treated at [place] and Dr. Hairston will accept the transfer to [place] as soon as the bed is available. ASSESSMENT: 1. Abnormal electrocardiogram with evidence of sinus arrhythmia, left-axis deviation. 2. Chest pain, myocardial infarction is ruled out. 3. Acute lymphocytic leukemia. 4. Thrombocytopenia. RECOMMENDATIONS: Continue current Altace at 5 mg once a day, hold aspirin, continue Toprol XL 25 mg once a day. The patient will be transferred to [facility] where further cardiac workup will be completed. No specific cardiac intervention is needed at this time. Guilherme Tovar MD
[2017-07-27 05:11] VITALS: BP 110/74; PULSE 97; TEMP 98.4
--- NOTE | 2017-07-27 11:44 | PN ---
DATE: 07/27/2017 SUBJECTIVE: The patient is seen and examined. Interim events noted. Consults noted and appreciated. Pulmonary and Hematology/Oncology interventions noted and appreciated. Case was discussed with the utility hand. The patient was found to have acute lymphocytic leukemia and is being transferred to [place] for further treatment. PHYSICAL EXAMINATION: GENERAL: The patient is in no acute distress. VITAL SIGNS: Stable. HEART: S1 and S2, normal and regular. LUNGS: Good bilateral air exchange. ABDOMEN: Soft and nontender. EXTREMITIES: No edema. No calf swelling. No tenderness. No acute ischemia. UX SPECIALIST: Essentially unchanged. DIAGNOSTIC DATA: Available diagnostic data reviewed. Overall, the patient is hemodynamically stable, although long-term prognosis remains guarded depending to treatment for acute lymphocytic leukemia. PLAN: Plan as ordered. The patient is being transferred to [place]. Augustus Bunn MD
--- NOTE | 2017-07-27 18:19 | CARD ---
APPROVED REPORT EKG Measurement Heart [id number] <Conclusion> Sinus rhythm with premature atrial complexes Left axis deviation Abnormal ECG
== END 2017-07-27 08:23 | disposition short-term general hospital (02) | DRG 836 ==
LOC: H.ER 11:09 → H.ERHOLD 15:22 → H.TEL 18:46
PROVIDERS: ADMIT Internal Medicine; ATTEND Internal Medicine
DX: C91.00 Acute lymphoblastic leukemia not having achieved remission (principal); D69.6 Thrombocytopenia, unspecified; D64.9 Anemia, unspecified; E11.9 Type 2 diabetes mellitus without complications; E78.5 Hyperlipidemia, unspecified; E78.00 Pure hypercholesterolemia, unspecified; I25.10 Atherosclerotic heart disease of native coronary artery without angina pectoris; I10 Essential (primary) hypertension; N40.0 Benign prostatic hyperplasia without lower urinary tract symptoms; Z95.5 Presence of coronary angioplasty implant and graft; Z79.82 Long term (current) use of aspirin; Z79.84 Long term (current) use of oral hypoglycemic drugs